=== PATIENT | female | born 1955 | race Caucasian/White ===

== ENCOUNTER 2021-05-06 17:38 | Emergency (ER) | payer BC, OTHER ==
[~2021-05-06] VITALS: Ht 165.1 cm; Wt 75.0 kg
[2021-05-06 17:40] VITALS: BP 165/77
[2021-05-06] MEDS ORDERED: acetaminophen 325mg tablet PO ONE (17:45)
[2021-05-06] MEDS ORDERED: ketorolac trometh. 30mg/ml inj. IM ONE (19:15)
== END 2021-05-06 20:09 | disposition home or self-care (01) ==
LOC: ER 17:39
DX: S82.852A Displaced trimalleolar fracture of left lower leg, initial encounter for closed fracture (principal); M25.572 Pain in left ankle and joints of left foot; X58.XXXA Exposure to other specified factors, initial encounter; Y93.89 Activity, other specified; Y92.89 Other specified places as the place of occurrence of the external cause; Y99.8 Other external cause status
CPT/HCPCS: 29515; 73600; 99283